=== PATIENT | female | born 1945 ===

== ENCOUNTER 2020-03-14 14:47 | Outpatient (REF) | payer MEDICARE, MEDICAID, SELFPAY ==
[2020-03-14 17:13] LABS: Bilirubin Negative (Negative); Blood Small (Negative); Clarity Cloudy (Clear); Glucose Negative (Negative); Ketones Trace mg/dL (Negative); Leukocyte Esterase Large (Negative); Nitrite Negative (Negative); Specific Gravity 1.025 (1.005-1.025); Urobilinogen 0.2 EU/dL (Up TO 0.2)
[2020-03-14 17:51] LABS: Bacteria Many HPF (Negative); C & S Indicated? C&S Done As Ordered; WBC >50 HPF (0-5)
== END 2020-03-14 15:07 ==
LOC: LBN 14:47
PROVIDERS: Visit Provider Family Medicine
DX: S72.001D Fracture of unspecified part of neck of right femur, subsequent encounter for closed fracture with routine healing (principal)
CPT/HCPCS: 87077; 81003; 81015; 87086; 87186

== ENCOUNTER 2020-03-16 11:52 | Outpatient (REF) | payer MEDICARE, MEDICAID, SELFPAY ==
[2020-03-16 13:29] LABS: Abs Immature Grans 0.04 k/cumm (0.0-0.09); Absolute Basophil Count 0.02 k/cumm (0.0-0.2); Absolute Lymphocyte Count 1.79 k/cumm (1.2-3.4); Absolute Monocyte Count 0.71 k/cumm (0.11-0.7); Absolute Neutrophil Count 5.46 k/cumm (1.2-6.7); Basophils % 0.2; Eosinophils % 3.6; HCT 28.3 % (36.0-46.0); HGB 8.2 g/dL (12.0-15.5); Immature Grans % 0.5 %; Lymphocytes % 21.5; Mean Corpuscular Hemoglobin 24.5 pg (27.0-33.0); Mean Corpuscular Volume 84.5 fL (80-95); Monocytes % 8.5; Neutrophils % 65.7; Platelet Count 421 x1000/uL (130-400); RBC 3.35 m/cumm (4.00-5.20); White Blood Cell Count 8.32 k/cumm (4.4-10.8)
[2020-03-16 14:09] LABS: Anisocytosis 3+; Basophilic Stippling Present; Diff Comment RBC Morph Reviewed; Poikilocytes 1+; Polychromasia Present
== END 2020-03-16 12:12 ==
LOC: LBN 11:52
PROVIDERS: Visit Provider Family Medicine
DX: D50.9 Iron deficiency anemia, unspecified (principal)
CPT/HCPCS: 85025